=== PATIENT | male | born 1990 | race Two or more races ===

== ENCOUNTER → 2022-05-23 | Emergency (ER) | payer OTHER ==
[~2022-05-23] VITALS: Ht 167.6 cm; Wt 80.7 kg
[~2022-05-23] MED LIST: BUTALBIT-ACETA1 EACH PO
== END | disposition home or self-care (01) ==
LOC: ER 17:07
DX: G43.909 Migraine, unspecified, not intractable, without status migrainosus (principal)

== ENCOUNTER 2024-01-09 12:06 | Emergency (ER) | payer OTHER ==
[~2024-01-09] VITALS: Ht 167.6 cm; Wt 81.6 kg
== END 2024-01-09 14:06 | disposition home or self-care (01) ==
LOC: ER 12:07
DX: H60.8X2 Other otitis externa, left ear (principal)